=== PATIENT | male | born 1955 | race Caucasian/White ===

== ENCOUNTER 2017-05-27 12:17 | Observation (INO) | payer MEDICAID ==
[~2017-05-27] VITALS: Ht 175.3 cm; Wt 52.2 kg
[2017-05-27 12:43] LABS: BASOPHILS # (AUTO) 0.05 x10^3/uL (0-0.1); BASOPHILS % (AUTO) 0 % (0-1); EOSINOPHILS # (AUTO) 0.15 x10^3/uL (0-0.4); EOSINOPHILS % (AUTO) 1 % (1-7); LYMPHOCYTES # (AUTO) 2.11 x10^3/uL (1-3.4); LYMPHOCYTES % (AUTO) 13 % (22-44); MD NO; MEAN CORPUSCULAR HEMOGLOBIN 28.9 pg (27.5-34.5); MEAN CORPUSCULAR HGB CONC 33.8 g/dL (33.2-36.2); MEAN CORPUSCULAR VOLUME 85.3 fL (81-97); MEAN PLATELET VOLUME 7.6 fL (7.4-10.4); MONOCYTES # (AUTO) 0.56 x10^3/uL (0.2-0.8); MONOCYTES % (AUTO) 4 % (2-9); NEUTROPHILS # (AUTO) 13.23 x10^3/uL (1.8-6.8); NEUTROPHILS % (AUTO) 82 % (42-75); PLATELET COUNT 370 x10^3/uL (130-400); RED BLOOD COUNT 5.15 x10^6/uL (4.38-5.82); RED CELL DISTRIBUTION WIDTH 13.8 % (9.4-14.8)
[2017-05-27 12:56] LABS: ALBUMIN 3.5 g/dL (3.4-5.0); ANION GAP 11 mmol/L (5-15); CALCIUM 7.9 mg/dL (8.5-10.1); CHLORIDE 106 mmol/L (98-107); SALICYLATE LEVEL < 1.7 mg/dL (2.8-20.0)
[2017-05-27 12:57] LABS: ACETAMINOPHEN < 2 mcg/mL (10-30)
[2017-05-27 16:43] LABS: AMPHETAMINE SCREEN, URINE Negative (Negative); BARBITURATE SCREEN, URINE Negative (Negative); BENZODIAZEPINE SCREEN, URINE Negative (Negative); CANNABINOID SCREEN, URINE Negative (Negative); COCAINE SCREEN, URINE Negative (Negative); METHADONE SCREEN, URINE Negative (Negative); OPIATE SCREEN, URINE Negative (Negative)
[2017-05-27] MEDS ORDERED: ONDANSETRON ODT 4 MG PO PRN (18:00)
[2017-05-27] MEDS ORDERED: LORazepam 0.5MG TABLET PO PRN (18:00)
[2017-05-27 20:51] VITALS: BP 133/88
[2017-05-27] MEDS: TRAZODONE 50MG TABLET PO PRN (21:34)
[2017-05-27] MEDS: CHLORDIAZEPOXIDE 25 MG CAPSULE PO SCH (21:34)
[2017-05-28] MEDS: ACETAMINOPHEN 325 MG TABLET PO PRN ×2 (06:10→08:17)
[2017-05-28 07:51] VITALS: BP 114/62
[2017-05-28] MEDS: CHLORDIAZEPOXIDE 25 MG CAPSULE PO SCH ×3 (08:16→20:40)
[2017-05-28] MEDS ORDERED: IBUPROFEN 200 MG TABLET PO PRN (13:30)
[2017-05-28] MEDS ORDERED: DOCUSATE 100 MG CAPSULE PO PRN (13:30)
[2017-05-28 19:44] VITALS: BP 106/78
[2017-05-28] MEDS: THIAMINE 100MG TABLET PO SCH (20:40)
[2017-05-28] MEDS: TRAZODONE 50MG TABLET PO PRN (20:40)
[2017-05-29 08:00] VITALS: BP 113/74
[2017-05-29] MEDS: CHLORDIAZEPOXIDE 25 MG CAPSULE PO SCH ×2 (08:57→16:29)
[2017-05-29] MEDS: THIAMINE 100MG TABLET PO SCH (08:57)
[2017-05-29] MEDS ORDERED: FOLIC ACID 1 MG TABLET PO SCH (09:00)
== END 2017-05-29 16:50 ==
LOC: ED 14:55 → EDIP 18:02 → 3E 20:39
PROVIDERS: ADMIT Internal Medicine; ATTEND Internal Medicine
DX: R45.851 Suicidal ideations (principal); F32.9 Major depressive disorder, single episode, unspecified; I10 Essential (primary) hypertension; F10.129 Alcohol abuse with intoxication, unspecified; Z59.0 Homelessness; Z87.891 Personal history of nicotine dependence
CPT/HCPCS: 36415; 80048; 80307; 80329; 82040; 85025; 99285; G0378; G0480

== ENCOUNTER 2017-07-06 17:17 | Emergency (ER) | payer MEDICAID ==
[~2017-07-06] VITALS: Ht 170.2 cm; Wt 60.0 kg
[2017-07-06 17:33] VITALS: BP 144/76
[2017-07-06 18:06] LABS: BASOPHILS # (AUTO) 0.04 x10^3/uL (0-0.1); BASOPHILS % (AUTO) 1 % (0-1); EOSINOPHILS % (AUTO) 3 % (1-7); LYMPHOCYTES # (AUTO) 1.89 x10^3/uL (1-3.4); LYMPHOCYTES % (AUTO) 28 % (22-44); MD NO; MEAN CORPUSCULAR HEMOGLOBIN 29.6 pg (27.5-34.5); MEAN CORPUSCULAR VOLUME 87.1 fL (81-97); MEAN PLATELET VOLUME 7.5 fL (7.4-10.4); MONOCYTES # (AUTO) 0.55 x10^3/uL (0.2-0.8); MONOCYTES % (AUTO) 8 % (2-9); NEUTROPHILS # (AUTO) 4.15 x10^3/uL (1.8-6.8); NEUTROPHILS % (AUTO) 61 % (42-75); PLATELET COUNT 324 x10^3/uL (130-400); RED BLOOD COUNT 4.88 x10^6/uL (4.38-5.82); RED CELL DISTRIBUTION WIDTH 14.9 % (9.4-14.8)
[2017-07-06 18:14] LABS: ALBUMIN 3.4 g/dL (3.4-5.0); ANION GAP 10 mmol/L (5-15); CALCIUM 7.9 mg/dL (8.5-10.1); CHLORIDE 107 mmol/L (98-107); CREATININE 0.68 mg/dL (0.7-1.3)
[2017-07-06 18:18] LABS: SALICYLATE LEVEL < 1.7 mg/dL (2.8-20.0)
[2017-07-06 18:19] LABS: ACETAMINOPHEN < 2 mcg/mL (10-30)
== END 2017-07-06 20:11 | disposition home or self-care (01) ==
LOC: ED 18:46
DX: F32.9 Major depressive disorder, single episode, unspecified (principal); F10.220 Alcohol dependence with intoxication, uncomplicated; Z79.899 Other long term (current) drug therapy
CPT/HCPCS: 36415; 80048; 80307; 80329; 82040; 85025; 99284; G0480